=== PATIENT | female | born 1990 | race Asian ===

== ENCOUNTER → 2019-05-17 | Outpatient (CLI) | payer BC | END | disposition home or self-care (01) | LOC: US 13:44 | PROVIDERS: ATTEND Obstetrics & Gynecology | DX: Z34.02 Encounter for supervision of normal first pregnancy, second trimester (principal); Z3A.19 19 weeks gestation of pregnancy | CPT/HCPCS: 76805 ==

== ENCOUNTER 2019-10-03 00:08 | Inpatient (IN) | payer BC ==
[~2019-10-03] VITALS: Ht 165.1 cm; Wt 76.2 kg
[2019-10-03] MEDS ORDERED: BUTORPHANOL TARTRATE 2 MG/ML VIAL IV PRN (01:00)
[2019-10-03] MEDS ORDERED: NALOXONE HCL 0.4 MG/ML 1ML VIAL IM PRN (01:00)
[2019-10-03] MEDS ORDERED: LIDOCAINE HCL 1% 20ML VIAL (Pyxis) INJ INFIL SCH (01:00)
[2019-10-03] MEDS: LACTATED RINGERS 1,000 ML IV SCH ×2 (01:35→09:08)
[2019-10-03 01:59] LABS: BASOPHILS % 0.2 % (0.0-2.0); EOSINOPHILS % 1.7 % (0.0-5.0); HEMATOCRIT. 38.8 % (36.0-48.0); HEMOGLOBIN. 13.2 g/dL (12.0-16.0); LYMPHOCYTES % 19.7 % (20.0-50.0); MEAN CORPUSCULAR HEMOGLOBIN 29.8 pg (28.0-32.0); MEAN CORPUSCULAR VOLUME 87.8 fL (81.0-99.0); MEAN PLATELET VOLUME 9.8 fl (7.4-10.4); MONOCYTES % 8.2 % (2.0-8.0); NEUTROPHILS % 70.2 % (40.0-76.0); PLATELET 225 x1000/uL (130-400); RED BLOOD CELL COUNT 4.42 mill/uL (4.2-5.4); RED CELL DISTRIBUTION WIDTH 14.6 % (11.6-14.6)
[2019-10-03 03:30] LABS: HEPATITIS B SURFACE ANTIGEN NEGATIVE
[2019-10-03] MEDS ORDERED: ROPIVACAINE HCL/PF EPIDURAL 200 ML EPI PRN (16:28)
[2019-10-03] MEDS ORDERED: ROPIVACAINE HCL 2MG/ML (0.2%) 200ML BOTTLE IR ONE (16:30)
[2019-10-03] MEDS ORDERED: FENTANYL CITRATE/PF 50MCG/ML 2ML VIAL ONE (16:36)
[2019-10-03] MEDS ORDERED: BUPIVACAINE HCL/PF 0.25% (2.5MG/ML) 10ML ONE (16:37)
[2019-10-03] MEDS ORDERED: SODIUM CHLORIDE 0.9% 10ML VIAL ONE (16:37)
[2019-10-03] MEDS ORDERED: EPHEDRINE SULFATE 50MG/ML VIAL ONE (16:37)
[2019-10-03] MEDS ORDERED: LACTATED RINGERS IV PRN (18:45)
[2019-10-03] MEDS ORDERED: DEXT IV PRN (18:45)
[2019-10-03] MEDS ORDERED: OXYTOCIN IV PRN (18:45)
[2019-10-03] MEDS ORDERED: DEXT 5%/LR + PITOCIN 20UNITS/L 1,000 ML IV SCH ×2 (18:45→21:15)
[2019-10-03] MEDS ORDERED: DEXT 5%/LR + PITOCIN 20UNITS/L 1,000 ML IV PRN (19:00)
[2019-10-03] MEDS ORDERED: ACETAMINOPHEN WITH CODEINE 300/30MG TABLET PO PRN ×2 (21:15)
[2019-10-03] MEDS ORDERED: IBUPROFEN 400MG TABLET PO PRN (21:15)
[2019-10-03] MEDS ORDERED: GLYCERIN/WITCH HAZEL LEAF MEDICATED PAD TOP PRN (21:15)
[2019-10-03] MEDS ORDERED: BISACODYL 10MG SUPP PR PRN (21:15)
[2019-10-03] MEDS ORDERED: HEMORRHOIDAL SUPP PR PRN (21:15)
[2019-10-03] MEDS ORDERED: BENZOCAINE/LANOLIN/ALOE VERA SPRAY TOP PRN (21:15)
[2019-10-03] MEDS ORDERED: IBUPROFEN 800MG TABLET PO PRN (21:15)
[2019-10-03] MEDS ORDERED: METHYLERGONOVINE MALEATE 0.2 MG/ML IM PRN (21:30)
[2019-10-03 23:00] VITALS: BP 122/62
[2019-10-03 23:30] VITALS: BP 123/63
[2019-10-04] VITALS: BP 125/63
[2019-10-04 05:45] VITALS: BP 112/60
[2019-10-04 06:43] LABS: BASOPHILS % 0.1 % (0.0-2.0); HEMATOCRIT. 32.5 % (36.0-48.0); HEMOGLOBIN. 10.9 g/dL (12.0-16.0); LYMPHOCYTES % 12.2 % (20.0-50.0); MEAN CORPUSCULAR HEMOGLOBIN 29.1 pg (28.0-32.0); MEAN CORPUSCULAR VOLUME 87.1 fL (81.0-99.0); MEAN PLATELET VOLUME 9.6 fl (7.4-10.4); MONOCYTES % 8.5 % (2.0-8.0); NEUTROPHILS % 78.2 % (40.0-76.0); PLATELET 186 x1000/uL (130-400); RED BLOOD CELL COUNT 3.73 mill/uL (4.2-5.4); RED CELL DISTRIBUTION WIDTH 14.5 % (11.6-14.6)
[2019-10-04 07:43] VITALS: BP 101/50
[2019-10-04] MEDS: PRENATAL VIT/FE FUMARATE/FA TABLET PO SCH (08:51)
[2019-10-04] MEDS: SIMETHICONE 80MG TABLET CHEW PO SCH ×4 (08:51→21:19)
[2019-10-04] MEDS: FERROUS SULFATE 325MG TABLET PO SCH ×3 (08:51→18:34)
[2019-10-04] MEDS: MAGNESIUM/ALUMINUM HYDROXIDE/SIMETHICONE 30ML UDC PO SCH ×4 (08:51→21:19)
[2019-10-04 16:06] VITALS: BP 113/59
[2019-10-04] MEDS ORDERED: INFLUENZA VIRUS VACCINE(AFLURIA) 0.5ML SYR IM ONE (18:00)
[2019-10-04 19:30] VITALS: BP 104/60
[2019-10-04] MEDS ORDERED: DOCUSATE SODIUM 100MG CAPSULE PO SCH (21:00)
[2019-10-05 04:00] VITALS: BP 104/70
[2019-10-05] MEDS: MAGNESIUM/ALUMINUM HYDROXIDE/SIMETHICONE 30ML UDC PO SCH (07:30)
[2019-10-05 08:00] VITALS: BP 108/66
[2019-10-05] MEDS: SIMETHICONE 80MG TABLET CHEW PO SCH (08:00)
[2019-10-05] MEDS ORDERED: PNEUMOCOCCAL 23-VAL P-SAC VAC 0.5 ML IM ONE (08:00)
[2019-10-05] MEDS ORDERED: FERR325T23 PO (08:35)
[2019-10-05] MEDS ORDERED: IBUP-2030 PO (08:35)
[2019-10-05] MEDS: PRENATAL VIT/FE FUMARATE/FA TABLET PO SCH (09:39)
[2019-10-05] MEDS: FERROUS SULFATE 325MG TABLET PO SCH (09:39)
[2019-10-05] MEDS ORDERED: INFLUENZA VIRUS VACCINE(AFLURIA) 0.5ML SYR IM ONE (10:00)
== END 2019-10-05 11:30 | disposition home or self-care (01) | DRG 806 ==
LOC: OBSVTOIN 00:08 → 8 EST LDRP 00:08 → 8EST 22:50
PROVIDERS: ADMIT Obstetrics & Gynecology; ATTEND Obstetrics & Gynecology
PROC: 10E0XZZ Delivery of Products of Conception, External Approach (ICD-10-PCS; principal; 2019-10-03)
DX: O71.4 Obstetric high vaginal laceration alone (principal); D62 Acute posthemorrhagic anemia; Z37.0 Single live birth; O99.02 Anemia complicating childbirth; Z3A.39 39 weeks gestation of pregnancy
CPT/HCPCS: 36415; 85025; 86592; 86703; 86762; 86850; 86900; 87340; 90686; 99281; J0595; J2590; J2795; J3010; J3490; J7120